=== PATIENT | female | born 1935 | race Caucasian/White ===

== ENCOUNTER 2017-04-30 09:35 | Inpatient (IN) | END 2017-05-08 17:15 | disposition home or self-care (01) | DRG 291 | DX: I13.0 Hypertensive heart and chronic kidney disease with heart failure and stage 1 through stage 4 chronic kidney disease, or unspecified chronic kidney disease (principal); I50.33 Acute on chronic diastolic (congestive) heart failure; E11.22 Type 2 diabetes mellitus with diabetic chronic kidney disease; N39.0 Urinary tract infection, site not specified; K92.1 Melena; E87.5 Hyperkalemia; E78.5 Hyperlipidemia, unspecified; E03.9 Hypothyroidism, unspecified; E66.01 Morbid (severe) obesity due to excess calories; I25.10 Atherosclerotic heart disease of native coronary artery without angina pectoris; I73.9 Peripheral vascular disease, unspecified; I48.2 Chronic atrial fibrillation; N18.3 Chronic kidney disease, stage 3 (moderate); B96.20 Unspecified Escherichia coli [E. coli] as the cause of diseases classified elsewhere; Z95.0 Presence of cardiac pacemaker; Z95.1 Presence of aortocoronary bypass graft; Z68.38 Body mass index [BMI] 38.0-38.9, adult; Z79.4 Long term (current) use of insulin; Z79.01 Long term (current) use of anticoagulants ==

== ENCOUNTER 2018-06-16 20:31 | Inpatient (IN) | END 2018-06-18 19:55 | disposition left against medical advice (07) | DRG 563 ==

== ENCOUNTER → 2018-08-26 | Outpatient (CLI) | payer MEDICARE, OTHER ==
[~2018-08-26] MED LIST: APIX5TAB PO; DOCU-144 PO; ERGO500013 PO; FAMO20TA18 PO; FURO40SO PO; INSU100V23 SC; ISOS20TA19 PO; LANT3I SC; LEVO50TA64 PO; METO-407 PO; SENN-120 PO; SIMV20TA PO; SPIR50TA PO; SULF1TAB30 PO; TEMA15CA PO
== END | disposition home or self-care (01) ==
LOC: RAD 12:33
PROVIDERS: ATTEND Family Medicine
DX: S42.91XD Fracture of right shoulder girdle, part unspecified, subsequent encounter for fracture with routine healing (principal); X58.XXXD Exposure to other specified factors, subsequent encounter
CPT/HCPCS: 71100; 72170

== ENCOUNTER → 2018-08-26 | Outpatient (CLI) | payer MEDICARE, OTHER | END | disposition home or self-care (01) | LOC: RAD 12:06 | PROVIDERS: ATTEND Internal Medicine Rheumatology | DX: S82.002D Unspecified fracture of left patella, subsequent encounter for closed fracture with routine healing (principal); S82.001D Unspecified fracture of right patella, subsequent encounter for closed fracture with routine healing; W19.XXXD Unspecified fall, subsequent encounter | CPT/HCPCS: 72170 ==

== ENCOUNTER 2018-11-20 14:30 | Emergency (ER) | payer MEDICARE, OTHER ==
[~2018-11-20] VITALS: Ht 162.6 cm; Wt 100.0 kg
[2018-11-20] MEDS ORDERED: ONDANSETRON (ODT) 4 MG TAB ODT STA (14:47)
[2018-11-20 14:51] VITALS: Ht 162.6 cm; Wt 100.0 kg
[2018-11-20] MEDS ORDERED: LIDOCAINE 2%/EPI MPF (SDV) 20 ML VIAL INJ STA (14:53)
[2018-11-20] MEDS ORDERED: HYDROCODONE/APAP (5/325) TAB PO ONE (15:00)
[2018-11-20] MEDS ORDERED: DIPHTH/TET/ACEL PERTUSS (ADULT) 0.5 ML VIAL IM* ONE (15:00)
--- NOTE | 2018-11-20 16:52 | ERD ---
ER Documentation Chief Complaint Chief Complaint Trip and fall c/o nosebleed and right knee pain and swelling no KO HPI Patient is an 83-year-old female with hypertension and diabetes who presents after a fall. The patient had a trip and fall over 2 today. She hit her nose and her right knee. She did not lose consciousness. She has had no treatment as of yet. This happened just prior to arrival. ROS All systems reviewed and are negative except as per history of present illness. Medications Home Meds Active Scripts Sulfamethoxazole/Trimethoprim (Bactrim 400-80 mg Tablet) 1 Each Tablet, 1 EACH PO BID for 7 Days, TAB Prov:GORAN ALCANTAR MD 05/08/17 Furosemide* (Furosemide*) 40 Mg/5 Ml Solution, 40 MG PO DAILY for 28 Days, #150 ML Prov:GORAN ALCANTAR MD 05/08/17 Metoprolol Tartrate* (Lopressor*) 100 Mg Tablet, 100 MG PO BID for 14 Days, TAB Prov:GORAN ALCANTAR MD 05/08/17 Isosorbide Dinitrate* (Isosorbide Dinitrate*) 20 Mg Tablet, 20 MG PO TID for 28 Days, TAB Prov:GORAN ALCANTAR MD 05/08/17 Apixaban* (Eliquis*) 5 Mg Tablet, 5 MG PO BID, #60 TAB Prov:GORAN ALCANTAR MD 05/08/17 Reported Medications Docusate Sodium* (Colace*) 100 Mg Capsule, 100 MG PO BID PRN for CONSTIPATION, #60 CAP 04/30/17 Ergocalciferol (Vitamin D2) (VITAMIN D2) 50,000 Unit Capsule, 58189 UNIT PO WEEKLY, CAP 04/30/17 Spironolactone* (Aldactone*) 50 Mg Tablet, 50 MG PO DAILY, #30 TAB 04/30/17 Sennosides* (Senna Lax*) 8.6 Mg Tablet, 1 TAB PO DAILY PRN for CONSTIPATION, TAB 04/30/17 Insulin Glargine* (Lantus*) 100 Unit/Ml Soln, 28-30 UNIT SC AC MEALS, #1 VIAL 04/30/17 Insulin Regular, Human* (Novolin R*) 100 U/Ml Vial, 5 UNITS SC AC MEALS, VIAL 03/19/16 Temazepam* (Temazepam*) 15 Mg Capsule, 15 MG PO HS, CAP 03/07/16 Famotidine* (Famotidine*) 20 Mg Tablet, 20 MG PO DAILY, #30 TAB 03/07/16 Simvastatin* (Zocor*) 20 Mg Tablet, 20 MG PO QHS, #30 TAB 03/07/16 Levothyroxine Sodium (Levothroid) 50 Mcg Tablet, 50 MCG PO DAILY 06/11/11 Allergies Allergies: Coded Allergies: Penicillins (Verified Allergy, Unknown, 03/29/16) PMhx/Soc History of Surgery: Yes (pacemaker and gallstone removal, CABG) Anesthesia Reaction: No Hx Neurological Disorder: Yes Hx Respiratory Disorders: Yes (COPD) Hx Cardiac Disorders: Yes (HTN, AFIB,) Hx Psychiatric Problems: No Hx Miscellaneous Medical Probl: Yes (OBESITY, CAD, CHF, CKD , DM , DIABETIC NEUROPHATY, FALL ) Hx Alcohol Use: No Hx Substance Use: No Hx Tobacco Use: No Smoking Status: Never smoker FmHx Family History: No diabetes Physical Exam Vitals Vital Signs Date Temp Pulse Resp B/P (MAP) Pulse Ox O2 O2 Flow FiO2 Time Delivery Rate 11/20/18 97.8 78 18 150/68 100 14:51 (95) Physical Exam Const: No acute distress Head: Atraumatic Eyes: Normal Conjunctiva ENT: Laceration of left nose Neck: Full range of motion. No meningismus. Resp: Clear to auscultation bilaterally Cardio: Regular rate and rhythm, no murmurs Abd: Soft, non tender, non distended. Normal bowel sounds Skin: Laceration of the left nose Back: No midline or flank tenderness Ext: No cyanosis, or edema Neur: Awake and alert Psych: Normal Mood and Affect Results 24 hrs Current Medications Medications Dose Sig/Olamide Start Time Status Last (Trade) Ordered Route PRN Stop Time Admin Dose Reason Admin 1 tab ONCE ONCE 11/20/18 DC 11/20/18 Acetaminophen PO 15:00 15:39 / 11/20/18 15:01 Hydrocodone Bitart ([place] (5/325)) Ondansetron 4 mg ONCE STAT 11/20/18 DC 11/20/18 HCl (Zofran ODT 14:47 15:39 Odt) 11/20/18 14:48 Diphtheria/ 0.5 ml ONCE ONCE 11/20/18 DC 11/20/18 Tetanus/Acell IM* 15:00 15:40 Pertussis 11/20/18 15:01 (Adacel) Lidocaine/ 20 ml ONCE STAT 11/20/18 DC Epinephrine INJ 14:53 (Xylocaine 11/20/18 14:54 2%/ Epi Mpf(Sdv)) Procedures/MDM CT brain negative for skull fracture or bleed per radiology. CT cervical spine negative for fracture per radiology. X-ray of the right knee negative for fracture or dislocation per radiology. There is severe degenerative changes. Laceration Repair by me: Anesthesia: 1% lidocaine with epinephrine locally Location: Left nose Tendon/Joint/Nerves: No injury Foreign body: None detected after copious irrigation and exploration Technique: Simple Interrupted Sutures Complexity: No subcutaneous sutures/mucosal repair/edge excision Post Closure Length: 3 cm Splint Note Type: Knee immobilizer Location: Right lower extremity Indication: Knee pain with swelling Splint Assessment: Neurovascularly intact post splint placement with good fit. Patient's bleeding was easily controlled in the department and there is no indication of anemia. No evidence of compartment syndrome, neurologic injury, vascular injury, open joint, tendon laceration, or foreign body. Patient is appropriate for outpatient follow up. 48 hour wound check. Scar minimization instructions given. Patient will need to follow-up with her primary doctor for both wound check and for follow-up of the right knee pain. The patient will need to use her walker and a knee immobilizer was given. She can return for worsening symptoms and will be given Vicodin, Narcan, and Colace. Departure Diagnosis: Primary Impression: Laceration Additional Impressions: Concussion Encounter type: initial encounter Loss of consciousness presence/duration: without LOC Qualified Codes: S06.0X0A - Concussion without loss of consciousness, initial encounter Knee injury Encounter type: initial encounter Laterality: right Qualified Codes: S89.91XA - Unspecified injury of right lower leg, initial encounter Fall Encounter type: initial encounter Qualified Codes: W19.XXXA - Unspecified fall, initial encounter Condition: Fair Patient Instructions: Concussion, Fall, Mechanical, Laceration, Face (Suture Or Tape) Additional Instructions: 2 Days Wound Check 7-10 Days Suture removal JOYCE LEONE MD Nov 20, 2018 16:52
[2018-11-20] MEDS ORDERED: DOCU-144 PO (16:55)
[2018-11-20] MEDS ORDERED: NALO4SPR NS (16:55)
[2018-11-20] MEDS ORDERED: HYDR-3024 PO (16:55)
[2018-11-20 17:38] VITALS: BP 132/92; PULSE 125; RESP 18
== END 2018-11-20 17:40 | disposition home or self-care (01) ==
LOC: E/R 14:30
DX: S01.21XA Laceration without foreign body of nose, initial encounter (principal); S89.91XA Unspecified injury of right lower leg, initial encounter; S06.0X0A Concussion without loss of consciousness, initial encounter; J44.9 Chronic obstructive pulmonary disease, unspecified; E66.9 Obesity, unspecified; I50.9 Heart failure, unspecified; I25.10 Atherosclerotic heart disease of native coronary artery without angina pectoris; N18.9 Chronic kidney disease, unspecified; I13.0 Hypertensive heart and chronic kidney disease with heart failure and stage 1 through stage 4 chronic kidney disease, or unspecified chronic kidney disease; E11.22 Type 2 diabetes mellitus with diabetic chronic kidney disease; W01.198A Fall on same level from slipping, tripping and stumbling with subsequent striking against other object, initial encounter; Y92.9 Unspecified place or not applicable; Z23 Encounter for immunization; Z79.4 Long term (current) use of insulin; Z79.01 Long term (current) use of anticoagulants
CPT/HCPCS: 70450; 72125; 73562; 90471; 90715; 93005